=== PATIENT | female | born 1990 | race Caucasian/White ===

== ENCOUNTER 2016-12-02 13:56 | Emergency (ER) | payer MEDICAID, OTHER ==
[~2016-12-02] VITALS: Ht 167.6 cm; Wt 81.2 kg
[~2016-12-02 13:56] MED LIST: ALBU8I INH
[2016-12-02 14:02] VITALS: BP 120/78; PULSE 86; RESP 16; TEMP 98.2; O2SAT 98
--- NOTE | 2016-12-02 14:34 | PD ---
HPI Chief Complaint: Musculoskeletal Complaint Time Seen by Provider: 14:15 Travel History International Travel<30 days: No Contact w/Intl Traveler<30days: No Traveled to known affect area: No History of Present Illness HPI 26 year-old female presents to the emergency room for evaluation of left hand pain and swelling for the past week. Patient denies trauma or injury. States she thought she slept on it wrong but it seems to be getting worse. There was originally swelling of the whole dorsal aspect but now it seems to be localized to above the wrist. Pain is worse with range of motion of the hand and when she touches the dorsal aspect. She has been applying ice and taking ibuprofen without relief is symptoms. Patient adamantly denies IV drug use. PFSH Past Medical History Asthma: Yes Diminished Hearing: No Musculoskeletal: Yes (HERNIATED DISC) ?: Not Menopausal: No : 3 Para: 2 Miscarriage: 1 Dilation and Curettage (D&C): Yes (X2) Past Surgical History Gynecologic Surgery: Yes (D&C 2005) Social History Alcohol Use: No (OCC) Tobacco Use: Yes (1 PPD) Substance Use: Yes (PILLS- SNORT, INJECT) Allergies-Medications (Allergen,Severity, Reaction): Coded Allergies: Penicillin (Verified Allergy, Severe, RASH, 12/02/16) Reported Meds & Prescriptions Reported Meds & Active Scripts Active Review of Systems Except as stated in HPI: all other systems reviewed are Neg Physical Exam Narrative GENERAL: Well-nourished, well-developed female in no acute distress. Afebrile. Ambulatory. SKIN: Focused skin assessment warm/dry. No erythema or ecchymosis. HEAD: Normocephalic. EYES: No scleral icterus. No injection or drainage. NECK: Supple, trachea midline. No JVD or lymphadenopathy. CARDIOVASCULAR: Regular rate and rhythm without murmurs, gallops, or rubs. RESPIRATORY: Breath sounds equal bilaterally. No accessory muscle use. MUSCULOSKELETAL: No cyanosis. 2+ radial pulse and less than 2 second capillary refill distally. There is localized superficial edema to the proximal, dorsal hand. Limited range of motion of the hand secondary to pain. Data Data Last Documented VS Vital Signs Date Time Temp Pulse Resp B/P Pulse Ox O2 Delivery O2 Flow Rate FiO2 12/02/16 14:02 98.2 86 16 120/78 98 Orders Hand, Complete ([id number]) (12/02/16 ) [facility] Medical Decision Making Medical Screen Exam Complete: Yes Emergency Medical Condition: Yes Medical Record Reviewed: Yes Differential Diagnosis hematoma, thrombophlebitis, sprain, iv drug use Narrative Course 26-year-old female presents to the emergency room for evaluation of left hand pain and swelling for the past week. She denies trauma or injury. Physical exam reveals superficial phlebitis of the left dorsal hand that is extremely tender to palpation. She has no bony tenderness to palpation. No increased warmth, erythema, or ecchymosis. No indication of infection. Patient adamantly denies IV drug use but has track parker in her bilateral antecubital spaces and on the dorsal aspects of both hands. I suspect she may have injected drugs initially and missed the vein or caused inflammation of the vein. X-ray was taken to rule out foreign body and occult fracture. X-ray is unremarkable. Left hand is neurovascularly intact with 2+ pulses and less than 2 second capillary refill distally. Slightly limited range of motion secondary to pain. I had my attending physician, Dr. Crocker, assessed the patient who diagnosed hematoma and recommends orthopedic instructions. Patient discharged with instructions to take ibuprofen for pain and follow-up with a primary care physician or return for worsening symptoms. She understands and agrees to plan. Diagnosis Primary Impression: Traumatic hematoma of left hand Qualified Code: S60.222A - Traumatic hematoma of left hand, initial encounter Referrals: Primary Care Physician Patient Instructions: General Instructions, Hematoma (ED) Additional Instructions: Rest and drink plenty of fluids. Take ibuprofen with food as directed, as needed for pain. Apply ice to the affected area for 20 minutes at a time, as needed for pain and swelling. Follow-up with a primary care physician. Return to the emergency room for worsening symptoms. Disposition: 01 DISCHARGE HOME Condition: Stable Tiarra Navarrete Dec 02, 2016 14:34
--- NOTE | 2016-12-02 14:43 | RADRPT ---
EXAM DATE/TIME: 12/02/2016 14:27 [facility] COMPARISON: No previous studies available for comparison. INDICATIONS : Pain and swelling in left hand for one week, pain is most severe at proximal 2nd and 3rd metacarpals, denies trauma MEDICAL HISTORY : None. SURGICAL HISTORY : None. ENCOUNTER: Initial ACUITY: 1 week PAIN SCORE: 7/10 LOCATION: Left hand FINDINGS: Three view examination of the left hand demonstrates no soft tissue swelling, dislocation, or fractur e. The carpal bones appear intact. The interphalangeal and metacarpophalangeal joints are intact. Bony mineralization is normal. CONCLUSION: Unremarkable exam Hema Porras MD on December 02, 2016 at 14:40 Board Certified Radiologist. This report was verified electronically.
== END 2016-12-02 14:50 | disposition home or self-care (01) ==
LOC: PHEFT 13:56
DX: S60.222A Contusion of left hand, initial encounter (principal); X58.XXXA Exposure to other specified factors, initial encounter
CPT/HCPCS: 73130; 99283